=== PATIENT | female | born 1945 | race Caucasian/White ===

== ENCOUNTER → 2018-03-08 08:51 | Outpatient (CLI) | payer MEDICARE, BC, SELFPAY ==
[2018-03-08 10:51] LABS: Anion Gap 4 (5-15); BUN 23 mg/dL (7-18); BUN/Creat Ratio 16.2 RATIO (10-20); Calcium,Total 9.2 mg/dL (8.5-10.1); Chloride 104 mmol/L (98-107); Cholesterol 190 mg/dL (200); Creatinine, Serum 1.42 mg/dL (0.55-1.02); EST Glomerular Filtration Rate 39 mL/min (>60); Est Glom Filt Rate - Afr Amer 47 mL/min (>60); Glucose 108 mg/dL (74-106); High Density Lipoprotein 50 mg/dL; Potassium 4.2 mmol/L (3.5-5.1); Sodium Level 137 mmol/L (136-145); Triglycerides 151 mg/dL; Very Low Density Lipoprotein 30 mg/dL (5-40)
[2018-03-08 10:54] LABS: Vitamin D,25 Hydroxy 36.9 ng/mL (29.95-100.01)
[2018-03-08 11:04] LABS: Hemoglobin A1c 5.8 % (4.2-6.3)
== END ==
PROVIDERS: Family Provider Family Medicine; PCP Family Medicine; Referring Provider Family Medicine; Visit Provider Family Medicine
DX: I10 Essential (primary) hypertension (principal); E78.00 Pure hypercholesterolemia, unspecified; R73.09 Other abnormal glucose; E55.9 Vitamin D deficiency, unspecified
CPT/HCPCS: 36415; 80048; 80061; 82306; 83036

== ENCOUNTER → 2018-04-28 10:50 | Outpatient (CLI) | payer MEDICARE, BC, SELFPAY ==
--- NOTE | 2018-04-28 10:56 | BI_ITS ---
MAMMOGRAPHY - BILATERAL SCREENING REASON FOR EXAM: Female, 72 years old. Routine annual screening examination. PERTINENT HISTORY: Non-contributory. TECHNIQUE: Digital bilateral breast elver (3D mammographic acquisition) in the CC and MLO projections. 2-D mediolateral oblique (MLO) and craniocaudad (CC) views of both breasts were obtained. CAD: Full Field Digital Mammography with Computer Added Detection was performed. COMPARISON: Comparison is made with prior study dated April 25, 2017 and March 30, 2016. FINDINGS: Breast Composition: The breasts are heterogeneously dense, which may obscure small masses. There are no dominant masses or suspicious calcifications. Stable 8 mm x 8 mm well-defined nodule in the central medial retroareolar region of the left breast. Prior ultrasound of the left breast dated April 29, 2017 demonstrated this to be a small cyst. No other significant abnormalities are identified. There has been no significant change since the prior study. BI/SCREENING MAMM (CAD), BILAT IMPRESSION: Stable bilateral screening mammogram. Yearly follow-up mammogram recommended. (A) ASSESSMENT CATEGORY: BIRADS Category 2: Benign. A letter regarding these results will be sent to the patient by the facility within 30 days. Approximately 10% of breast cancers are not detected by mammography. A normal mammogram should not delay biopsy of a clinically suspicious abnormality. [id number] Electronically Signed: Angel James MD at 13:08 EST Tel [phone], Service support ,
== END ==
PROVIDERS: Family Provider Family Medicine; PCP Family Medicine; Referring Provider Nurse Practitioner Women's Health; Visit Provider Nurse Practitioner Women's Health
DX: Z12.31 Encounter for screening mammogram for malignant neoplasm of breast (principal)
CPT/HCPCS: 77063; 77067

== ENCOUNTER → 2018-10-10 13:40 | Outpatient (CLI) | payer MEDICARE, BC, SELFPAY ==
--- NOTE | 2018-10-10 14:16 | VDLE_ITS ---
Reason For Study: edema RIGHT LEFT CFV is compressible, spontaneous, phasic, GSV is normal. competent and demonstrates normal CFV is compressible, spontaneous, phasic, augmentation. competent, and demonstrates normal Procedure augmentation. Exam performed in department. FV is compressible, spontaneous, phasic, The exam was diagnostic. competent and demonstrates normal A preliminary report was called and/or faxed augmentation. to Dr. Sung Rodrigez's office. POP V is compressible, spontaneous, phasic, competent and demonstrates normal augmentation. T/P Trunk is compressible. PTV is compressible. LT PerV is compressible. Interpretation Summary Deep veins of the left lower extremity are patent and compressible segmentally. There is no evidence of left lower extremity deep vein thrombosis. Valvular competence appears intact within the proximal deep venous system on the left . The left greater saphenous vein appears patent and compressible segmentally. Ordering Physician: Sung Rodrigez Performed By: Matthew Calzada RVT
[2018-10-10 15:54] LABS: Absolute Neutrophil Count 6.2 X10^3/uL (2.0-7.7); Basophil# 0.02 X10^3/uL; Basophil% 0.2 % (0-1); Eosinophil# 0.42 X10^3/uL; Eosinophils% 4.9 % (0-5); Hemoglobin 11.6 g/dl (12.0-15.0); Lymphocyte % 15.1 % (19-41); Mean Corp Hgb Conc 33.1 g/gl (32-36); Mean Corpuscular Hgb 31.5 pg (27.0-32.0); Mean Corpuscular Volume 95.1 fL (81-99); Mean Platelet Vol. 10.8 fl (6.2-12.0); Monocyte# 0.66 X10^3/uL; Monocyte% 7.7 % (0-10); Neutrophil # 6.18 X10^3/uL (2.7-7.7); Neutrophil % 71.8 % (47-70); Platelet Count 263 K/mm3 (150-450); RBC Distribution Width CV 12.3 % (11.6-14.6); RBC Distribution Width SD 41.7 fl (35.1-43.9); Red Blood Count 3.68 M/mm3 (4.2-5.4); White Blood Count 8.6 K/mm3 (4.4-11.0)
[2018-10-10 15:59] LABS: POSITIVE COUNT NO; POSITIVE DIFFERENTIAL NO; POSITIVE MORPHOLOGY NO
[2018-10-10 16:22] LABS: Anion Gap 8 (5-15); BUN 27 mg/dL (7-18); BUN/Creat Ratio 20.3 RATIO (10-20); Calcium,Total 9.5 mg/dL (8.5-10.1); Chloride 99 mmol/L (98-107); Creatinine, Serum 1.33 mg/dL (0.55-1.02); EST Glomerular Filtration Rate 41 mL/min (>60); Est Glom Filt Rate - Afr Amer 50 mL/min (>60); Glucose 89 mg/dL (74-106); Potassium 3.7 mmol/L (3.5-5.1); Sodium Level 136 mmol/L (136-145)
[2018-10-10 16:37] LABS: BNP,B-Type NATRIURETIC PEPTIDE 23.5 pg/mL (0-100)
== END ==
PROVIDERS: Family Provider Family Medicine; PCP Family Medicine; Referring Provider Family Medicine; Visit Provider Family Medicine
DX: R60.0 Localized edema (principal)
CPT/HCPCS: 36415; 80048; 83880; 85025; 93971

== ENCOUNTER → 2018-10-17 11:55 | Outpatient (CLI) | payer MEDICARE, BC, SELFPAY ==
[2018-03-28 11:11] VITALS: BMI 36.1
--- NOTE | 2018-10-17 11:58 | RAD_ITS ---
STUDY: X-RAY CHEST REASON FOR EXAM: Female, 73 years old. Short of breath. TECHNIQUE: Frontal and lateral views of the chest. COMPARISON: 12/24/16 FINDINGS: The lungs are clear and expanded. There is no demonstrated pleural abnormality. Normal size heart. Normal mediastinum and dominga. Normal visualized pulmonary arteries. There is atherosclerotic tortuosity of the aortic arch and descending thoracic aorta. There are diffuse degenerative changes of the visualized thoracic spine. There is S-shaped scoliosis of the spine. Normal visualized ribs, clavicles, and shoulders. There is no demonstrated abnormality of the visualized soft tissue structures of the upper abdomen. RAD/Chest PA and Lateral IMPRESSION: No acute chest disease. Electronically Signed: Jasbir Castle MD at 12:13 EDT , Service support ,
== END ==
PROVIDERS: Family Provider Family Medicine; PCP Family Medicine; Referring Provider Family Medicine; Visit Provider Family Medicine
DX: R06.02 Shortness of breath (principal)
CPT/HCPCS: 71046

== ENCOUNTER → 2018-10-27 13:47 | Outpatient (CLI) | payer MEDICARE, BC, SELFPAY ==
--- NOTE | 2018-10-27 13:49 | ECHOD_ITS ---
Reason For Study: PEDAL EDEMA Procedure This was a 2D Doppler, Color Flow transthoracic echocardiogram. Exam performed in department. Left Ventricle Normal LV size. Left ventricular systolic function is normal. The estimated ejection fraction is 65 %. Stage 1 diastolic dysfunction. No regional wall motion abnormalities noted. Right Ventricle Normal RV size. ICD or pacer leads identified within the right ventricle. Normal systolic function. Atria Normal left atrium. Normal right atrium. Mitral Valve Normal mitral valve. Tricuspid Valve Normal tricuspid valve. Mild to moderate (1-2+) tricuspid valve insufficiency. Pulmonary artery systolic pressure is 40 mmHg. Aortic Valve Normal aortic valve. Pulmonic Valve Normal pulmonic valve. Great Vessels Normal aortic root. The pulmonary artery is normal size. Normal inferior vena cava. Pericardium/Pleural No pericardial effusion. MMode/2D Measurements & Calculations LVIDd: 3.7 cm IVSd: 1.0 cm Ao root diam: 3.2 cm LVIDs: 2.4 cm LVPWd: 0.99 cm RVDd: 3.2 cm FS: 35.3 % LAV(MOD-bp): 53.9 ml LVAd ap4: 30.7 cm2 SV(MOD-sp4): 63.2 ml LAV(MOD-bp) Indexed: 24.5 ml/m2 EDV(MOD-sp4): 93.4 ml LAV(MOD-sp2): 67.7 ml EDV(sp4-el): 99.8 ml LAV(MOD-sp4): 39.2 ml LVAs ap4: 15.0 cm2 ESV(MOD-sp4): 30.2 ml ESV(sp4-el): 33.4 ml EF(MOD-sp4): 67.6 % EF(sp4-el): 66.5 % SV(sp4-el): 66.3 ml LA A4 area: 16.3 cm2 LA dimension(2D): 4.0 cm RA A4 area: 14.5 cm2 Time Measurements MV dec time: 0.42 sec Doppler Measurements & Calculations MV E max jacob: 74.5 cm/sec Lat Peak E' Jacob: 12.9 cm/sec Med Peak E' Jacob: 5.2 cm/sec MV A max jacob: 118.2 cm/sec E/E' lat: 5.8 E/E' med: 14.4 MV E/A: 0.63 Ao V2 max: 138.4 cm/sec LV V1 max: 130.7 cm/sec PA V2 max: 110.2 cm/sec Ao max P.7 mmHg LV V1 max P.8 mmHg TR max jacob: 300.3 cm/sec TR max P.2 mmHg Interpretation Summary Normal LV size. Left ventricular systolic function is normal. The estimated ejection fraction is 65 %. Stage 1 diastolic dysfunction. Pulmonary artery systolic pressure is 40 mmHg. Ordering Physician: Sung Rodrigez Referring Physician: Sung Rodrigez Performed By: Maria R Kulkarni RDCS
== END ==
PROVIDERS: Family Provider Family Medicine; PCP Family Medicine; Referring Provider Family Medicine; Visit Provider Family Medicine
DX: R60.0 Localized edema (principal)
CPT/HCPCS: 93306

== ENCOUNTER → 2018-10-31 14:01 | Outpatient (CLI) | payer MEDICARE, BC, SELFPAY ==
--- NOTE | 2018-10-31 14:31 | US_ITS ---
STUDY: ULTRASOUND OF THE FEMALE PELVIS - COMPLETE REASON FOR EXAM: Female, 73 years old. Pedal edema LMP: TECHNIQUE: Transabdominal TECHNICAL QUALITY: Adequate. COMPARISON: None. FINDINGS: The uterus is nonvisualized. The right ovary is visualized. The right ovary nonvisualized. The left ovary is nonvisualized.. There is no fluid in the cul-de-sac. The pre void volume of the bladder was 226.7 ml. There is no visualized free fluid. US/Pelvic (Non ) IMPRESSION: Nonvisualization of the reproductive organs. This may be due to body habitus atrophy or potentially prior history of surgery. Electronically Signed: Toya Mayo MD at 17:56 EDT Tel , Service support ,
== END ==
PROVIDERS: Family Provider Family Medicine; PCP Family Medicine; Referring Provider Family Medicine; Visit Provider Family Medicine
DX: R10.2 Pelvic and perineal pain (principal); R60.0 Localized edema
CPT/HCPCS: 76856

== ENCOUNTER → 2018-11-03 13:30 | Outpatient (CLI) | payer MEDICARE, BC, SELFPAY ==
--- NOTE | 2018-11-03 13:48 | US_ITS ---
STUDY: RENAL ULTRASOUND - COMPLETE REASON FOR EXAM: Female, 73 years old. Edema TECHNIQUE: Ultrasound evaluation of the kidneys was performed with real-time and static thompson-scale imaging. COMPARISON: None available. FINDINGS: RIGHT KIDNEY: Normal location of the right kidney, which is normal in size. The right kidney measures 11.3 cm. There is a normal cortex of the right kidney. There is no right renal mass or cyst. There are no right renal calculi. There is an extra-renal pelvis of the right kidney. There is no distention of the renal calyces. DISTAL RIGHT URETER: There is non-visualization of the distal right ureter. There is no demonstrated right ureterovesical junction calculus. There is a visualized right ureteral jet. LEFT KIDNEY: Normal location of the left kidney, which is normal in size. The left kidney measures 10.3 cm. There is a normal cortex of the left kidney. There is no left renal mass or cyst. There are no left renal calculi. There is no left hydronephrosis. DISTAL LEFT URETER: There is non-visualization of the distal left ureter. There is no demonstrated left ureterovesical junction calculus. There is a visualized left ureteral jet. BLADDER: The urinary bladder is partially distended and appears unremarkable. There is a postvoid residual of 25 cc. US/Kidney and Bladder IMPRESSION: Normal kidneys. No hydronephrosis. Postvoid residual of 25 cc in the urinary bladder.. Electronically Signed: Deuce Maravilla, at 22:40 EDT Tel , Service support ,
[2018-11-03 13:54] LABS: Anion Gap 5 (5-15); BUN 27 mg/dL (7-18); BUN/Creat Ratio 21.1 RATIO (10-20); Calcium,Total 9.9 mg/dL (8.5-10.1); Chloride 95 mmol/L (98-107); Creatinine, Serum 1.28 mg/dL (0.55-1.02); EST Glomerular Filtration Rate 43 mL/min (>60); Est Glom Filt Rate - Afr Amer 52 mL/min (>60); Glucose 121 mg/dL (74-106); Potassium 3.9 mmol/L (3.5-5.1); Sodium Level 129 mmol/L (136-145)
== END ==
PROVIDERS: Family Provider Family Medicine; PCP Family Medicine; Referring Provider Family Medicine; Visit Provider Family Medicine
DX: R60.0 Localized edema (principal)
CPT/HCPCS: 36415; 76770; 80048

== ENCOUNTER → 2018-12-14 10:54 | Outpatient (CLI) | payer MEDICARE, BC, SELFPAY ==
[2018-03-28 11:11] VITALS: BMI 36.1
--- NOTE | 2018-12-14 10:55 | VDLE_ITS ---
Reason For Study: pain ans swelling, May Thurner syndrome RIGHT LEFT CFV is compressible, spontaneous, phasic, CFV is compressible, spontaneous, phasic, competent and demonstrates normal competent, and demonstrates normal augmentation. augmentation. Procedure FV is compressible, spontaneous, phasic, Exam performed in department. competent and demonstrates normal The exam was diagnostic. augmentation. POP V is compressible, spontaneous, phasic, competent and demonstrates normal augmentation. T/P Trunk is compressible. PTV is compressible. LT PerV is compressible. S-F Junction is competent. S-F Junction measures .69 x .86 cm. GSV is incompetent throughout for greater than .5 seconds. GSV measures .26 x .27 cm. SSV is competent. Fur Weigher V 8 cm proximal to the medial malleolus is incompetent for greater than .5 seconds. Interpretation Summary 1. Left no DVT or SVT. 2. Reflux in small left GSV at 2.7mm. Ordering Physician: Luis M Gagnon Performed By: Matthew Calzada RVT
--- NOTE | 2018-12-14 11:35 | CT_ITS ---
STUDY: CT ABDOMEN AND PELVIS WITH CONTRAST REASON FOR EXAM: Female, 73 years old. Nausea and vomiting RADIATION DOSAGE (If Supplied By Facility): CTDIvol = ( 17.40 ) mGy, DLP = ( 1091.98 ) mGycm TECHNIQUE: Transaxial images were obtained from the dome of the diaphragm to the symphysis pubis without oral contrast. 100 IV Isovue 300 was administered. Sagittal and coronal images were reconstructed. Individualized dose optimization techniques were used for this CT. COMPARISON: None. FINDINGS: The visualized lung bases are unremarkable. The visualized portions of the heart are within normal limits. Normal liver. Normal gallbladder and extrahepatic biliary system. Normal spleen. Normal pancreas. Normal bilateral adrenal glands. Normal right kidney. Normal left kidney. There is a small hiatal hernia. Normal small intestine. Retained stool noted in the colon. Scattered diverticula noted throughout the descending and sigmoid colon. No CT evidence of acute diverticulitis. There is non-visualization of the appendix. There is diffuse atherosclerotic calcification of the abdominal aorta, without a demonstrated aneurysm. Normal inferior vena cava. Normal retroperitoneum. Normal urinary bladder. Normal abdominal wall. There are diffuse degenerative changes of the visualized lumbar spine, and pelvis. CT/Abdomen/Pelvis WITH Contrast IMPRESSION: Colonic diverticulosis Retained stool Hiatal hernia No suspicious solid organ abnormality No CT evidence of an acute inflammatory process Electronically Signed: Andrae Gamboa MD at 13:21 EDT , Service support ,
== END ==
PROVIDERS: Family Provider Family Medicine; PCP Family Medicine; Referring Provider Surgery Vascular Surgery; Visit Provider Surgery Vascular Surgery
DX: I87.1 Compression of vein (principal); M79.605 Pain in left leg; M79.89 Other specified soft tissue disorders
CPT/HCPCS: 74177; 93971; Q9967

== ENCOUNTER → 2019-03-19 10:08 | Outpatient (CLI) | payer MEDICARE, BC, SELFPAY ==
[2018-03-28 11:11] VITALS: BMI 36.1
[2019-03-19 12:42] LABS: Anion Gap 5 (5-15); BUN 26 mg/dL (7-18); BUN/Creat Ratio 20.2 RATIO (10-20); Calcium,Total 9.6 mg/dL (8.5-10.1); Chloride 106 mmol/L (98-107); Cholesterol 190 mg/dL (200); Creatinine, Serum 1.29 mg/dL (0.55-1.02); EST Glomerular Filtration Rate 43 mL/min (>60); Est Glom Filt Rate - Afr Amer 52 mL/min (>60); Glucose 98 mg/dL (74-106); High Density Lipoprotein 51 mg/dL; Potassium 4.2 mmol/L (3.5-5.1); Sodium Level 140 mmol/L (136-145); Triglycerides 140 mg/dL; Very Low Density Lipoprotein 28 mg/dL (5-40)
[2019-03-19 12:45] LABS: Hemoglobin A1c 5.5 % (4.2-6.3)
== END ==
PROVIDERS: Family Provider Family Medicine; PCP Family Medicine; Referring Provider Family Medicine; Visit Provider Family Medicine
DX: I10 Essential (primary) hypertension (principal); R73.09 Other abnormal glucose
CPT/HCPCS: 36415; 80048; 80061; 83036

== ENCOUNTER → 2019-06-05 14:34 | Outpatient (CLI) | payer MEDICARE, BC, SELFPAY ==
[2019-06-05 14:10] VITALS: BMI 36.1
--- NOTE | 2019-06-05 14:34 | BI_ITS ---
MAMMOGRAPHY - BILATERAL SCREENING REASON FOR EXAM: Female, 73 years old. Routine annual screening examination. PERTINENT HISTORY: Non-contributory. TECHNIQUE: Digital bilateral breast nava (3D mammographic acquisition) in the CC and MLO projections. 2-D mediolateral oblique (MLO) and craniocaudad (CC) views of both breasts were obtained. CAD: Full Field Digital Mammography with Computer Added Detection was performed. COMPARISON: Comparison is made with prior study dated April 28, 2018 and April 25, 2017. FINDINGS: Breast Composition: The breasts are heterogeneously dense, which may obscure small masses. There are no dominant masses or suspicious calcifications. No other significant abnormalities are identified. There has been no significant change since the prior study. BI/SCREEN MAMM (CAD) W/NAVA BILAT IMPRESSION: Stable bilateral screening mammogram. Yearly follow-up mammogram recommended. (A) ASSESSMENT CATEGORY: BIRADS Category 1: Negative. A letter regarding these results will be sent to the patient by the facility within 30 days. Approximately 10% of breast cancers are not detected by mammography. A normal mammogram should not delay biopsy of a clinically suspicious abnormality. [id number] Electronically Signed: Angel James, at 8:36 EST , Service support ,
== END ==
PROVIDERS: Family Provider Family Medicine; PCP Family Medicine; Referring Provider Nurse Practitioner Women's Health; Visit Provider Nurse Practitioner Women's Health
DX: Z12.31 Encounter for screening mammogram for malignant neoplasm of breast (principal)
CPT/HCPCS: 77063; 77067

== ENCOUNTER → 2020-03-11 08:53 | Outpatient (CLI) | payer MEDICARE, BC, SELFPAY ==
[2020-02-21 11:09] VITALS: BMI 32.7
[2020-02-27 13:10] VITALS: BMI 36.1
[2020-03-11 10:57] LABS: ALB/GLOB Ratio 1.1 RATIO (0.9-2.4); AST(SGOT) 15 U/L (15-37); Alanine Aminotransfer ALT/SGPT 20 U/L (13-56); Albumin, Serum 3.8 g/dL (3.2-5.0); Alkaline Phosphatase 69 U/L (45-117); Anion Gap 5 (5-15); BUN 22 mg/dL (7-18); BUN/Creat Ratio 16.2 RATIO (10-20); Calcium,Total 9.2 mg/dL (8.5-10.1); Chloride 101 mmol/L (98-107); Cholesterol 190 mg/dL (200); Creatinine, Serum 1.36 mg/dL (0.55-1.02); EST Glomerular Filtration Rate 40 mL/min (>60); Est Glom Filt Rate - Afr Amer 49 mL/min (>60); Globulin 3.5 g/dL (2.2-4.2); Glucose 104 mg/dL (74-106); High Density Lipoprotein 55 mg/dL; Potassium 4.1 mmol/L (3.5-5.1); Protein, Total 7.3 g/dL (6.4-8.2); Sodium Level 136 mmol/L (136-145); Triglycerides 140 mg/dL; Very Low Density Lipoprotein 28 mg/dL (5-40)
== END ==
PROVIDERS: PCP Family Medicine; Referring Provider Family Medicine; Visit Provider Family Medicine
DX: I10 Essential (primary) hypertension (principal)
CPT/HCPCS: 36415; 80053; 80061

== ENCOUNTER → 2020-03-20 09:41 | Outpatient (CLI) | payer MEDICARE, BC, SELFPAY ==
[2020-02-21 11:09] VITALS: BMI 32.7
[2020-02-27 13:10] VITALS: BMI 36.1
[2020-03-20 12:48] LABS: Anion Gap 5 (5-15); BUN 20 mg/dL (7-18); BUN/Creat Ratio 15.5 RATIO (10-20); Calcium,Total 8.8 mg/dL (8.5-10.1); Chloride 97 mmol/L (98-107); Creatinine, Serum 1.29 mg/dL (0.55-1.02); EST Glomerular Filtration Rate 43 mL/min (>60); Est Glom Filt Rate - Afr Amer 52 mL/min (>60); Glucose 93 mg/dL (74-106); Phosphorus 3.2 mg/dL (2.5-4.9); Sodium Level 132 mmol/L (136-145)
[2020-03-20 12:53] LABS: PTHIN 110.1 pg/mL (18.4-80.1)
[2020-03-20 13:00] LABS: Protein, Urine (Random) < 6.0 mg/dL (<11.9)
== END ==
PROVIDERS: PCP Family Medicine; Referring Provider Family Medicine; Visit Provider Family Medicine
DX: N18.30 Chronic kidney disease, stage 3 unspecified (principal)
CPT/HCPCS: 36415; 80048; 82570; 83970; 84100; 84156

== ENCOUNTER → 2020-03-26 09:17 | Outpatient (CLI) | payer MEDICARE, BC, SELFPAY ==
[2020-02-21 11:09] VITALS: BMI 32.7
[2020-02-27 13:10] VITALS: BMI 36.1
--- NOTE | 2020-03-26 09:22 | US_ITS ---
STUDY: RENAL ULTRASOUND - COMPLETE REASON FOR EXAM: Female, 74 years old. ckd 3 TECHNIQUE: Ultrasound evaluation of the kidneys was performed with real-time and static thompson-scale imaging. COMPARISON: Comparison is made with prior study dated 11/03/2018. FINDINGS: RIGHT KIDNEY: Normal location of the right kidney, which is normal in size. The right kidney measures 10.5 cm x 4.2 cm x 6.2 cm. There is a normal cortex of the right kidney. The renal cortex measures 2.0 cm. There is no right renal mass or cyst. There are no right renal calculi. There is an extra-renal pelvis of the right kidney. There is no distention of the renal calyces. DISTAL RIGHT URETER: There is non-visualization of the distal right ureter. There is no demonstrated right ureterovesical junction calculus. There is a visualized right ureteral jet. LEFT KIDNEY: Normal location of the left kidney, which is normal in size. The left kidney measures 10.2 cm x 4.4 cm x 4.9 cm. There is a normal cortex of the left kidney. The renal cortex measures 1.4 cm. There is no left renal mass or cyst. There are no left renal calculi. There is no left hydronephrosis. DISTAL LEFT URETER: There is non-visualization of the distal left ureter. There is no demonstrated left ureterovesical junction calculus. There is a visualized left ureteral jet. BLADDER: The distended urinary bladder has a volume of 101 ml. US/Kidney and Bladder IMPRESSION: Normal ultrasound of the kidneys and urinary bladder. Electronically Signed: Angel James, at 15:24 EST , Service support ,
== END ==
PROVIDERS: PCP Family Medicine; Referring Provider Family Medicine; Visit Provider Family Medicine
DX: N18.30 Chronic kidney disease, stage 3 unspecified (principal); I65.29 Occlusion and stenosis of unspecified carotid artery; R01.1 Cardiac murmur, unspecified
CPT/HCPCS: 76770

== ENCOUNTER → 2020-03-28 08:49 | Outpatient (CLI) | payer MEDICARE, BC, SELFPAY ==
[2020-02-21 11:09] VITALS: BMI 32.7
[2020-02-27 13:10] VITALS: BMI 36.1
--- NOTE | 2020-03-28 08:52 | CDU_ITS ---
Reason For Study: Carotid stenosis Rt. Velocities/BP Lt. Velocities/BP Prox CCA 95.1/ 20.7 cm/sec. Prox CCA 74.8/ 22.0 cm/sec. Mid CCA 85.9/ 22.0 cm/sec. Mid CCA 89.5/ 19.5 cm/sec. Dist CCA 84.6/ 23.3 cm/sec. Dist CCA 83.4/ 26.9 cm/sec. Prox ICA 80.7/ 20.7 cm/sec. Prox ICA 79.9/ 22.0 cm/sec. Mid ICA 89.9/ 26.0 cm/sec. Mid ICA 73.6/ 24.5 cm/sec. Dist ICA 72.4/ 19.7 cm/sec. Dist ICA 87.0/ 36.8 cm/sec. Rt. ICA/CCA = 1.0. Lt. ICA/CCA = 1.0. Prox ECA 93.8/ 9.0 cm/sec. Prox ECA 82.2/ 13.4 cm/sec. Rt. Vert. 45.3/ 15.0 cm/sec. Lt. Vert. 56.4/ 15.8 cm/sec. Right Extracranial There is intimal thickening but no significant atherosclerotic plaque noted in the right common carotid artery. There is heterogeneous, irregular atherosclerotic plaque noted in the right internal carotid artery. There is intimal thickening but no significant atherosclerotic plaque noted in the right external carotid artery. Antegrade flow is noted in the right vertebral artery. Left Extracranial There is homogeneous, smooth atherosclerotic plaque noted in the left common carotid artery. There is heterogeneous, irregular atherosclerotic plaque noted in the left internal carotid artery. There is intimal thickening but no significant atherosclerotic plaque noted in the left external carotid artery. The left external carotid artery is not well visualized. Antegrade flow is noted in the left vertebral artery. Procedure Carotid Duplex 54512. This is a Carotid Duplex examination using B-mode, color flow and specral Doppler. Exam performed in department. Interpretation Summary Mild (<50%) stenosis right extracranial internal carotid. Mild (<50%) stenosis left extracranial internal carotid. Flow within the vertebral arteries is antegrade bilaterally. Ordering Physician: Sung Hicks Referring Physician: Sung Finch Performed By: Ambreen Dailey RVT and Student
--- NOTE | 2020-03-28 08:53 | ECHOD_ITS ---
Reason For Study: Murmur Procedure This was a 2D Doppler, Color Flow transthoracic echocardiogram. Exam performed in department. Left Ventricle Normal LV size. Sigmoid septum. Left ventricular systolic function is normal. The estimated ejection fraction is 65 %. Diastolic function is indeterminate. No regional wall motion abnormalities noted. Right Ventricle Normal RV size. Normal systolic function. Atria The left atrium is mildly enlarged. Normal right atrium. No doppler evidence for ASD. Mitral Valve There is no mitral annular calcification. Normal mitral valve. Trivial mitral valve insufficiency. Tricuspid Valve Normal tricuspid valve. Mild tricuspid valve insufficiency. Right ventricular systolic pressure estimated to be 32 mmHg. Aortic Valve Trisinus/trileaflet aortic valve. Normal aortic valve. Pulmonic Valve The pulmonic valve is not well visualized. Trivial pulmonic valve insufficiency. Great Vessels Normal sized aortic root. Pericardium/Pleural No pericardial effusion. MMode/2D Measurements & Calculations LVIDd: 3.8 cm IVSd: 1.5 cm Ao root diam: 3.5 cm LVIDs: 2.3 cm LVPWd: 1.2 cm LA dimension: 4.0 cm FS: 38.7 % LAV(MOD-bp): 55.0 ml LA A4 area: 18.4 cm2 RA A4 area: 14.3 cm2 LAV(MOD-bp) Indexed: 27.4 ml/m2 LAV(MOD-sp2): 52.2 ml LAV(MOD-sp4): 49.4 ml Time Measurements MV dec time: 0.34 sec Doppler Measurements & Calculations MV E max jacob: 79.3 cm/sec Lat Peak E' Jacob: 9.7 cm/sec Med Peak E' Jacob: 3.9 cm/sec MV A max jacob: 113.2 cm/sec E/E' lat: 8.1 E/E' med: 20.5 MV E/A: 0.70 MV V2 max: 112.5 cm/sec MV P1/2t max jacob: 80.8 cm/sec Ao V2 max: 118.4 cm/sec MV max P.1 mmHg MV P1/2t: 123.3 msec Ao max P.6 mmHg MV V2 mean: 56.8 cm/sec MV dec slope: 191.8 cm/sec2 MV mean P.5 mmHg MVA(P1/2t): 1.8 cm2 MV V2 VTI: 29.2 cm LV V1 max: 101.5 cm/sec PA V2 max: 115.6 cm/sec TR max jacob: 267.9 cm/sec LV V1 max P.1 mmHg TR max P.7 mmHg Interpretation Summary Left ventricular systolic function is normal. The estimated ejection fraction is 65 %. Sigmoid septum. The left atrium is mildly enlarged. Trivial mitral valve insufficiency. Mild tricuspid valve insufficiency. Trivial pulmonic valve insufficiency. Right ventricular systolic pressure estimated to be 32 mmHg. Diastolic function is indeterminate. Ordering Physician: Sung Hicks Referring Physician: Sung Hicks Performed By: Rj Villarreal RCS
--- NOTE | 2020-03-28 08:53 | RDU_ITS ---
Reason For Study: CKD3 Right Renal Artery Left Renal Artery Right renal artery ostium 90.3/16.3 Left renal artery ostium 65.7/16 RSV/EDV. PSV/EDV. Right renal artery proximal 93.3/25 Left renal artery proximal PSV/EDV PSV/EDV. 57.8/13.8 . Right renal artery mid 100.5/25 Left renal artery mid 68/21.7 PSV/EDV. PSV/EDV . Right renal artery distal Left renal artery distal 69.1/16 121.1/31.1 PSV/EDV. PSV/EDV. Right RAR 1.44. Left RAR 0.82. Right Renal Parenchyma Left Renal Parenchyma Upper Pole Medula 41.9/10.1 Left upper pole medulla 29.4/10.2 PSV/EDV. PSV/EDV . Right upper pole medulla EDR 0.24 . Left upper pole medulla EDR 0.35 . Right upper pole medulla R.I. Left upper pole medulla R.I. 0.65 . 0.76 . UP Cortex 20.3/7.5 PSV/EDV. Upper Terry Cortx 28.7/7.9 PSV/EDV. Left upper pole cortex EDR 0.37 . Right upper pole cortex EDR 0.27 . Left upper pole cortex R.I. 0.63 . Right upper pole cortex R.I. 0.73 . Left lower Pole medulla 31.2/9.3 Right lower Pole medulla 37.5/10.1 PSV/EDV . PSV/EDV . Left lower pole medulla EDR 0.30 . Right lower pole medulla EDR 0.27 . Left lower pole medulla R.I. 0.70 . Right lower pole medulla R.I. Lower Pole Cortx 22.1/7.5 PSV/EDV. 0.73 . Left lower pole cortex EDR 0.34 . Lower Pole Cortex 21.1/6.8 PSV/EDV. Left lower pole cortex R.I. 0.66 . Right lower pole cortex EDR 0.32 . Left Renal Hilar Right lower pole cortex R.I. 0.68 . LT Hilar avg 44.9/13.9 PSV/EDV . Right Renal Hilar Left hilar acceleration time 50 Right Hilar avg 49.6/15.6 PSV/EDV. m/sec. Right hilar acceleration time 30 Left Renal Dimensions m/sec. Left kidney size 10.10 cm . Right Renal Dimensions Left cortical dimension 1.67 cm . Right kidney size 10.28 cm . Right cortical dimension 1.76 cm . Aorta Proximal abdominal aorta 1.80 x 2.08 cm . Proximal abdominal aorta peak systolic velocity is 83.9 cm/sec . Distal abdominal aorta 1.71 x 1.73 cm . Distal abdominal aorta peak systolic velocity is 94.8 cm/sec . Interpretation Summary Dimensions of the intra-abdominal aorta appear normal, without evidence of aneurysmal dilatation. Renal artery velocities are bilaterally normal. Acceleration times are normal bilaterally. Renal- aortic ratios are also bilaterally normal. There is no evidence of hemodynamically significant renal artery stenosis on either side. The right cortical dimension is increased. The left cortical dimension is increased. Kidneys appear normal in size bilaterally. Ordering Physician: Sung Hicks Referring Physician: Sung Finch Performed By: Ambreen Dailey RVT and Student
== END ==
PROVIDERS: PCP Family Medicine; Referring Provider Family Medicine; Visit Provider Family Medicine
DX: Z01.818 Encounter for other preprocedural examination (principal); N18.30 Chronic kidney disease, stage 3 unspecified; I65.23 Occlusion and stenosis of bilateral carotid arteries; R01.1 Cardiac murmur, unspecified
CPT/HCPCS: 93306; 93880; 93975

== ENCOUNTER 2020-04-08 06:28 | Day surgery (SDC) | payer MEDICARE, BC, SELFPAY ==
[2020-02-21 11:09] VITALS: BMI 32.7
[2020-02-27 13:10] VITALS: BMI 36.1
--- NOTE | 2020-04-08 06:50 | HP.PCM_ITS ---
Problem List (1) Change in bowel habit Status: Acute (2) Epigastric pain Status: Acute History and Physical Date of Admission: 04/08/20 Intake Visit Reasons: C-Scope & EGD Chief Complaint: abdominal pain Shell [employer] Bonder Required: No Is patient in pain?: No Allergies Sulfa (Sulfonamide Antibiotics) Adverse Reaction (Intermediate, Verified 02/27/20 13:08) rash,hives Medications aspirin 81 mg tablet,delayed release 81 mg PO DAILY 06/05/19 [History Confirmed 02/27/20] lactobacillus combination no.8 3 billion cell capsule 3,000 mmu cells PO DAILY 06/05/19 [History Confirmed 02/27/20] lisinopril 20 mg-hydrochlorothiazide 12.5 mg tablet 1 tab PO DAILY 06/05/19 [History Confirmed 02/27/20] multivitamin 1 tab PO DAILY 06/05/19 [History Confirmed 02/27/20] naproxen 250 mg tablet 250 mg PO BID PRN 06/05/19 [History Confirmed 02/27/20] psyllium husk 0.4 gram capsule 0.4 g PO DAILY 06/05/19 [History Confirmed 02/27/20] estradiol 0.5 mg tablet 0.5 mg PO .COMPLEX #30 tab 09/17/19 [Rx Confirmed 02/27/20] Esomeprazole Mag Trihydrate [Nexium] 20 mg PO DAILY 02/21/20 [History Confirmed 02/27/20] Triamcinolone 0.1% Cream [Kenalog] 1 applic TOPICAL BID 02/21/20 [History Con firmed 02/27/20] famotidine 10 mg tablet 10 mg PO DAILY PRN 02/27/20 [History Confirmed 02/27/20] fluticasone propionate 50 mcg/actuation nasal spray,suspension 1 spray INTRANASAL DAILY ml 02/27/20 [History Confirmed 02/27/20] [facility] Medical History (Updated 02/27/20 @ 13:[address] Jake Mo MD) Change in bowel habit (Acute) Epigastric pain (Acute) Abdominal pain (Acute) Arthritis (Acute) BCC (basal cell carcinoma of skin) (Acute) DENTAL IMPLANT WITH NASAL SINUS BONE IMP (Acute) Diverticulitis (Acute) SCC (squamous cell carcinoma) (Acute) Hypertension (Chronic) Surgical History (Updated 02/27/20 @ 13:00 by Lynne Dawson) History of dilation and curettage (Acute) Cataract (Acute) FH: total knee replacement (Acute) H/O cardiac catheterization (Acute) H/O section (Acute) H/O hemicolectomy (Acute ~11/20/97) History of appendectomy (Acute) History of dental surgery (Acute) History of tonsillectomy and adenoidectomy (Acute) Status post ANNEL-BSO (Acute) Family History Father CAD (coronary artery disease) Alzheimer's dementia with behavioral disturbance Sister Endometrial cancer Alzheimer's dementia with behavioral disturbance Mother Arthritis Social History (Updated 02/27/20 @ 13:[address] Jake oM MD) number of children: 3 Smoking Status: Never smoker alcohol intake: never substance use type: does not use caffeine: Yes what type of physical activity do you participate in: none seatbelt use: always do you feel safe at home: Yes additional social history: -Gato HPI HPI HPI: JENNIFER WELLS, is a 74 F who presents to the office today for surgical consultation regarding epigastric pain and separate change of bowel habits. She is referred by Dr. Sung Finch and written copy my surgical consult recommendations were returned to him. The patient's had epigastric burning discomfort. She does have arthritis and she has to take routine Aleve therapy. For the longest time she was taking famotidine therapy as well as the Aleve and that would remedy her problem but then the burning epigastric discomfort intensified. She changed over to Nexium which did improve her care. But she was interested in diminishing that drug. She tried to go to every other day with lack of success because of recurrent epigastric discomfort. To complicate features she has combined almost dumping type diarrhea with and multiple days of not moving her stools. She has not noticed any bright red b lood. In 1997 I performed a colectomy for her for diverticular disease. She has not noticed any fever or chills sweats. She is not aware that she has been exposed anyone with Covid-19. Family history is negative for colon cancer. She does take a low-dose aspirin. There is been no personal or family history of colon polyps. Her previous colonoscopy was almost 10 years ago. HPI HPI HPI: JENNIFER WELLS, is a 74 F who presents to the office today for ROS General General: Yes weight change and fatigue; no appetite, colon cancer, breast cancer or weakness HEENT HEENT: No difficulty swallowing, eye injury, eye surgery, swollen glands or hoarseness Endo Endocrine: No thyroid disease, diabetes mellitus, thyroid cancer, Hair loss, heat intolerance or cold intolerance Skin Skin: No rash or changing moles Additional Details: History of various skin cancers Breast Breast: No left breast lump, right breast lump, nipple discharge, breast pain, abnormal mammogram, abnormal US or breast enlargement Musc Musculoskeletal: Yes arthritis; no back problems, rheumatoid arthritis, gout or joint pain Cardio Cardiovascular: Yes high blood pressure; no murmur, pacemaker, heart disease, atrial fibrillation, heart attack, heart stent, palpitations, shortness of breat with exertion or chest pain Psych Psychiatric: No depression, anxiety or hearing voices Resp Respiratory: No shortness of breath, No sleep apnea, No cough, No COPD, No asthma, No emphysema, No wheezing Gastro Gastrointestinal: Yes abdominal pain, Yes nausea or vomiting, Yes diarrhea, Yes constipation, No blood in stool, Yes acid reflux, Yes hemorrhoids, No ulcers, No gallbladder problem, No black,tarry stools Jhon Hematologic: No blood thinners, No blood disorders, No bleeding, No anemia, No blood clots Neuro Neurologic: No system reviewed and no additional complaints, except as docu, No as per HPI, No abnormal walking, No abnormal hearing, No abnormal movements, No abnormal speech, No behavioral changes, No burning sensations, No confusion, No seizure-like activity, No unsteadiness, No dizziness, No localized weakness, No frequent falls, No headache(s), No lack of coordination, No loss of vision, No memory loss, No numbness, No other visual disturbances, No radiating pain, No restless legs, No sensory deficit, No fainting, No tingling, No tremor(s), No weakness, No other Exam Const General: cooperative, healthy appearing, comfortable Nutritional Appearance: obese Orientation: alert, awake HENMT Other: Nasal tip 1.2 cm diameter superficial skin cancer Chest Breast Palpation: No nipple discharge Resp Effort & Inspection: normal respiratory effort Auscultation: clear to auscultation bilaterally Cardio Rate: regular rate Rhythm: regular rhythm Heart Sounds: no murmurs GI Palpation: soft, no hepatosplenomegaly Neuro General: alert, awake Extrem General: no calf tenderness Psych Affect: normal affect Assessment & Plan Problems 1. Epigastric pain R10.13 2. Change in bowel habit R19.4 Plan Epigastric pain. Findings suggest probable gastritis cannot exclude actual ulcerative disease. I recommend a esophagogastroduodenoscopy with possible bio psy or polypectomy as indicated. Change of bowel habit certainly of note. She has had a previous sigmoid colectomy for diverticular disease. That was remote 1997. Her abdominal exam currently is negative for acute discomfort. Believe that is pertinent proceed with a colonoscopy with anticipated at least random colonic biopsies looking for possible microcytic colitis in addition to looking for recurrent diverticular problems. She has had an opportunity to ask and have questions answered. She will schedule procedure at her discretion. We will use monitored anesthesia care. She has consideration for upcoming [facility] surgery I appreciate the opportunity of assisting with her surgical care Copy Dr. Sung Mo M.D., F.A.C.S. Orders Orders: Colonoscopy Today EGD Today Coding Level of Care Code 50372 Diagnoses Epigastric pain R10.13 Change in bowel habit R19.4 He has had carotid duplex imaging and renal duplex imaging none of which was eventful. She has been placed on her blood pressure medicine twice a day. Blood pressure is better controlled. Her history and physical is otherwise unchanged and we will proceed as noted. Jake Mo M.D., F.A.C.S. Procedure Criteria Procedure Type: Elective COVID Risk Discussion: The surgeon/proceduralist and patient have discussed in detail the risk of exposure to and/or potential harm posed by the COVID-19 virus with having a surgery/procedure at this time versus the risk of delaying the surgery/procedure. It is not possible to know either the risk of delaying the surgery or procedure or chance of getting an infection with perfect accuracy, but a joint decision was made between the patient and the surgeon/proceduralist to proceed at this time with the scheduled surgery/procedure as indicated on the consent form.
[2020-04-08 07:07] VITALS: BP 189/97; PULSE 73; RESP 16; TEMP 37.1; O2SAT 96; BMI 32.3
[2020-04-08] MEDS: Lactated Ringers 1,000 ML 100 ML IV (07:25)
--- NOTE | 2020-04-08 07:30 | COLBX_PTH ---
PATIENT: JENNIFER WELLS LOC: EN U#:[id number] AGE/SX: 74/F ROOM: RE04/08/[address]: Dr. Jake Mo MD : 1945 BED: DIS: 04/08/2020 SPEC #: [id number] RECD: 04/08/20 10:18 STATUS: CEDRIC RODRIGUES #: [id number] DREA: 04/08/20 07:[address]: Jake Mo DEPT: SURGICAL PATHOLOGY RECD BY: Nimco Han ENTERED: 04/08/20 11:09 SP TYPE: COLON BX OTHR DR: Dr. Sung Finch MD Tissues: A - Duodenum, NOS B - Gastric mucous membrane C - Esophagus, NOS D - Esophagus, NOS E - COLON BIOPSY Procedures: Surgery Specimen Level IV HEADER OPERATION: Colonoscopy, EGD ([facility]) PRE-OP DIAGNOSIS: Change in bowel habit; epigastric pain TISSUE SUBMITTED: A - Duodenum biopsy, B - Antrum biopsy for histo and H. pylori, C - Distal esophagus biopsy, D - Mid esophagus biopsy, E - Random colonic biopsy MICROSCOPIC DIAGNOSIS A. Duodenum, biopsy: No pathologic change. B. Gastric antrum, biopsy: Chronic gastritis. See comment. C. Distal esophagus, biopsy: Fragments of benign squamous mucosa. Focal acute inflammation. Focal changes of reflux. Negative for fungal organisms. See comment. D. Mid esophagus, biopsy: Fragments of benign squamous mucosa. No evidence of inflammation. E. Colon, random biopsy: No pathologic change. AM:jahaira 04/09/20 COMMENT B. The results of immunohistochemistry for Helicobacter pylori will be reported separately ([id number]). C. GMS stain with matched control was used in the evaluation of this case. MICROSCOPIC DESCRIPTION Slides are reviewed. GROSS DESCRIPTION A - Received in fixative is one container labeled with the patient's name and designated duodenum biopsy. The specimen consists of multiple irregular fragments of light sheehan soft tissue that in aggregate measure 0.5 x 0.3 x 0.1 cm. The specimen is totally submitted in one cassette. B - Received in fixative is one container labeled with the patient's name and designated antrum biopsy. The specimen consists of one irregular fragment of light sheehan soft tissue that measures 0.3 x 0.3 x 0.1 cm. The specimen is totally submitted in one cassette. C - Received in fixative is one container labeled with the patient's name and designated distal esophagus biopsy. The specimen consists of multiple irregular fragments of light sheehan soft tissue that in aggregate measure 0.6 x 0.3 x 0.1 cm. The specimen is totally submitted in one cassette. D - Received in fixative is one container labeled with the patient's name and designated mid esophagus biopsy. The specimen consists of one irregular fragment of light sheehan soft tissue that measures 0.3 x 0.3 x 0.1 cm. The specimen is totally submitted in one cassette. E - Received in fixative is one container labeled with the patient's name and designated random colonic biopsy. The specimen consists of multiple irregular fragments of light sheehan soft tissue that in aggregate measure 2 x 0.4 x 0.1 cm. The specimen is totally submitted in one cassette. / SJ:rg 04/08/20 TC:2 CPT: 67123 x5, 59496
--- NOTE | 2020-04-08 07:30 | IMM_PTH ---
PATIENT: JENNIFER WELLS LOC: EN U#:[id number] AGE/SX: 74/F ROOM: RE04/08/[address]: Dr. Jake oM MD : 1945 BED: DIS: 04/08/2020 SPEC #: [id number] RECD: 04/08/20 13:24 STATUS: CEDRIC REQ #: [id number] DREA: 04/08/20 07:[address]: Jake Mo DEPT: IMMUNOHISTOCHEMISTRY RECD BY: Leslye Dawn ENTERED: 04/08/20 13:24 SP TYPE: IMMUNO OTHR DR: Dr. Sung Finch MD Tissues: B - Stomach, NOS Procedures: H Pylori (initial) PHYSICIAN & INSTITUTION [place] [id number] SPECIMEN INFORMATION: Tissue Source: B - Antrum biopsy Clinical Info: Change in bowel habit, epigastric pain Specimen Number: [id number] CPT code: 48370 METHODOLOGY: Deparaffinized sections of prefer/formalin-fixed tissue or PAP/DQ stained slides are incubated with monoclonal/polyclonal antibodies/oligonucleotide probes. Localization is made via biotin free immunoperoxidase method. Appropriate controls are performed and reacted as expected. Results on target cell population are indicated in the following table: RESULTS: ANTIBODY / CLONE RESULT Block B H Pylori (polyclonal) negative These tests were developed and their performance characteristics determined by [facility]. They may not have been cleared or approved by the U.S. Food and Drug Administration. The FDA has determined that such clearance or approval is not necessary. INTERPRETATION: B. Antrum biopsy: Negative for Helicobacter pylori organisms. AM:jahaira 04/10/20
[2020-04-08 08:00] VITALS: BP 121/69; BP 189/97; PULSE 76; RESP 16; TEMP 36.7; O2SAT 98
--- NOTE | 2020-04-08 08:02 | OP.EGD_ITS ---
Patient Name: Katiana Urbina Procedure Date: 04/08/2020 7:22 AM Date of : 1945 Age: 74 Procedure: Upper GI endoscopy Indications: Epigastric abdominal pain Providers: Jake Mo MD Referring MD: Sung Finch Md Medicines: See the Anesthesia note for documentation of the administered medications Complications: No immediate complications. Procedure: Pre-Anesthesia Assessment: - Prior to the procedure, a History and Physical was performed, and patient medications and allergies were reviewed. The patient's tolerance of previous anesthesia was also reviewed. The risks and benefits of the procedure and the sedation options and risks were discussed with the patient. All questions were answered, and informed consent was obtained. Prior Anticoagulants: The patient has taken no previous anticoagulant or antiplatelet agents. ASA Grade Assessment: II - A patient with mild systemic disease. After reviewing the risks and benefits, the patient was deemed in satisfactory condition to undergo the procedure. After obtaining informed consent, the endoscope was passed under direct vision. Throughout the procedure, the patient's blood pressure, pulse, and oxygen saturations were monitored continuously. The gastroscope was introduced through the mouth, and advanced to the second part of duodenum. The upper GI endoscopy was accomplished without difficulty. The patient tolerated the procedure well. Scope In: 7:30:00 AM Scope Out: 7:36:48 AM Total Procedure Duration Time 0 hours 6 minutes 48 seconds Findings: LA Grade A (one or more mucosal breaks less than 5 mm, not extending between tops of 2 mucosal folds) esophagitis with no bleeding was found 35 cm from the incisors. Biopsies were taken with a cold forceps for histology. The mid esophagus was normal. Biopsies were taken with a cold forceps for histology. A medium-sized hiatal hernia was present. Diffuse mildly erythematous mucosa without bleeding was found in the gastric antrum. Biopsies were taken with a cold forceps for histology. The examined duodenum was normal. Biopsies were taken with a cold forceps for histology. Impression: - LA Grade A reflux esophagitis. Biopsied. - Normal mid esophagus. Biopsied. - Medium-sized hiatal hernia. - Erythematous mucosa in the antrum. Biopsied. - Normal examined duodenum. Biopsied. Recommendation: - Await pathology results. - Discharge patient to home. - Resume previous diet. - Continue present medications. - Use sucralfate tablets 1 gram PO QID. Procedure Code(s): --- Professional --- 67146, Esophagogastroduodenoscopy, flexible, transoral; with biopsy, single or multiple Diagnosis Code(s): --- Professional --- K21.0, Gastro-esophageal reflux disease with esophagitis K44.9, Diaphragmatic hernia without obstruction or gangrene K31.89, Other diseases of stomach and duodenum R10.13, Epigastric pain CPT copyright 2017 [employer]. All rights reserved. The codes documented in this report are preliminary and upon primary therapist review may be revised to meet current compliance requirements. Jake Mo MD 04/08/2020 8:01:49 AM This report has been signed electronically. Number of Addenda: 0 Note Initiated On: 04/08/2020 7:22 AM
--- NOTE | 2020-04-08 08:02 | OP.CCLET_ITS ---
04/08/2020 Sung Finch Md Re : Upper GI endoscopy procedure for Katiana Fayr Stef This procedure was performed on Wednesday, April 08, 2020. My impressions and recommendations are as follows: Impressions : - LA Grade A reflux esophagitis. Biopsied. - Normal mid esophagus. Biopsied. - Medium-sized hiatal hernia. - Erythematous mucosa in the antrum. Biopsied. - Normal examined duodenum. Biopsied. Recommendations : - Await pathology results. - Discharge patient to home. - Resume previous diet. - Continue present medications. - Use sucralfate tablets 1 gram PO QID. My findings are described in the full procedure note, which is enclosed. If I can be of further assistance, please feel free to contact me at Doctor phone number(s): Work: . Sincerely, Jake Mo MD 04/08/2020 8:01:49 AM This report has been signed electronically.
[2020-04-08 08:05] VITALS: BP 119/73; BP 189/97; PULSE 74; RESP 16; O2SAT 100
--- NOTE | 2020-04-08 08:08 | OP.COLON_ITS ---
Patient Name: Katiana Urbina Procedure Date: 04/08/2020 7:37 AM Date of : 1945 Age: 74 Procedure: Colonoscopy Indications: Screening for colorectal malignant neoplasm Providers: Jake Mo MD Referring MD: Sung Finch Md Medicines: See the Anesthesia note for documentation of the administered medications Patient Profile: Last Colonoscopy: 10 years ago. Complications: No immediate complications. Procedure: Pre-Anesthesia Assessment: - Prior to the procedure, a History and Physical was performed, and patient medications and allergies were reviewed. The patient's tolerance of previous anesthesia was also reviewed. The risks and benefits of the procedure and the sedation options and risks were discussed with the patient. All questions were answered, and informed consent was obtained. Prior Anticoagulants: The patient has taken no previous anticoagulant or antiplatelet agents. ASA Grade Assessment: II - A patient with mild systemic disease. After reviewing the risks and benefits, the patient was deemed in satisfactory condition to undergo the procedure. After I obtained informed consent, the scope was passed under direct vision. Throughout the procedure, the patient's blood pressure, pulse, and oxygen saturations were monitored continuously. The adult colonoscope was introduced through the anus and advanced to the cecum, identified by appendiceal orifice and ileocecal valve. The colonoscopy was performed without difficulty. The patient tolerated the procedure well. The quality of the bowel preparation was fair. The ileocecal valve and the appendiceal orifice were photographed. Scope In: 7:39:01 AM Scope Withdrawal Time 0 hours 10 minutes 8 seconds Scope Out: 7:55:32 AM Total Procedure Duration Time 0 hours 16 minutes 31 seconds Findings: The digital rectal exam findings include non-thrombosed external hemorrhoids, non-thrombosed internal hemorrhoids and internal hemorrhoids that prolapse with straining, but spontaneously regress to the resting position (Grade II). Pertinent negatives include normal sphincter tone. There was evidence of a prior end-to-end colo-colonic anastomosis in the distal sigmoid colon. This was patent and was characterized by healthy appearing mucosa. Multiple diverticula were found in the entire colon. Biopsies for histology were taken with a cold forceps from the entire colon for evaluation of microscopic colitis. Impression: - Preparation of the colon was fair. - Non-thrombosed external hemorrhoids, non-thrombosed internal hemorrhoids and internal hemorrhoids that prolapse with straining, but spontaneously regress to the resting position (Grade II) found on digital rectal exam. - Patent end-to-end colo-colonic anastomosis, characterized by healthy appearing mucosa. - Diverticulosis in the entire examined colon. - Biopsies were taken with a cold forceps from the entire colon for evaluation of microscopic colitis. Recommendation: - Discharge patient to home. - Resume previous diet. - Continue present medications. - Telephone my office for pathology results in 1 week. - Repeat colonoscopy in 10 years for screening purposes. Procedure Code(s): --- Professional --- 30287, Colonoscopy, flexible; with biopsy, single or multiple Diagnosis Code(s): --- Professional --- Z12.11, Encounter for screening for malignant neoplasm of colon K64.1, Second degree hemorrhoids K64.4, Residual hemorrhoidal skin tags Z98.0, Intestinal bypass and anastomosis status K57.30, Diverticulosis of large intestine without perforation or abscess without bleeding CPT copyright 2017 [employer]. All rights reserved. The codes documented in this report are preliminary and upon flatwork feeder review may be revised to meet current compliance requirements. Jake Mo MD 04/08/2020 8:08:33 AM This report has been signed electronically. Number of Addenda: 0 Note Initiated On: 04/08/2020 7:37 AM
--- NOTE | 2020-04-08 08:09 | OP.CCLET_ITS ---
04/08/2020 Sung Finch Md Re : Colonoscopy procedure for Katiana Fayr Stef This procedure was performed on Wednesday, April 08, 2020. My impressions and recommendations are as follows: Impressions : - Preparation of the colon was fair. - Non-thrombosed external hemorrhoids, non-thrombosed internal hemorrhoids and internal hemorrhoids that prolapse with straining, but spontaneously regress to the resting position (Grade II) found on digital rectal exam. - Patent end-to-end colo-colonic anastomosis, characterized by healthy appearing mucosa. - Diverticulosis in the entire examined colon. - Biopsies were taken with a cold forceps from the entire colon for evaluation of microscopic colitis. Recommendations : - Discharge patient to home. - Resume previous diet. - Continue present medications. - Telephone my office for pathology results in 1 week. - Repeat colonoscopy in 10 years for screening purposes. My findings are described in the full procedure note, which is enclosed. If I can be of further assistance, please feel free to contact me at Doctor phone number(s): Work: . Sincerely, Jake Mo MD 04/08/2020 8:08:33 AM This report has been signed electronically.
[2020-04-08 08:10] VITALS: BP 129/74; BP 189/97; PULSE 70; RESP 16; O2SAT 97
[2020-04-08 08:15] VITALS: BP 138/73; BP 189/97; PULSE 69; RESP 16; TEMP 36.5; O2SAT 97
[2020-04-08 08:29] VITALS: BP 189/97
== END 2020-04-08 08:40 | disposition home or self-care (01) ==
LOC: EN 06:28 → AC 06:28
PROVIDERS: PCP Family Medicine; Referring Provider Family Medicine; Visit Provider Surgery
PROC: 0DJD8ZZ Inspection of Lower Intestinal Tract, Via Natural or Artificial Opening Endoscopic (ICD-10-PCS; CPT 45378; principal; 2020-04-08 07:25)
DX: Z12.11 Encounter for screening for malignant neoplasm of colon (principal); K57.30 Diverticulosis of large intestine without perforation or abscess without bleeding; K29.50 Unspecified chronic gastritis without bleeding; K21.00 Gastro-esophageal reflux disease with esophagitis, without bleeding; K44.9 Diaphragmatic hernia without obstruction or gangrene; K31.89 Other diseases of stomach and duodenum; K64.1 Second degree hemorrhoids; K64.4 Residual hemorrhoidal skin tags; R19.4 Change in bowel habit; Z20.828 Contact with and (suspected) exposure to other viral communicable diseases; R10.9 Unspecified abdominal pain; I10 Essential (primary) hypertension; E66.9 Obesity, unspecified; Z98.0 Intestinal bypass and anastomosis status; Z79.82 Long term (current) use of aspirin; Z79.899 Other long term (current) drug therapy
CPT/HCPCS: 43239; 45380; 87426; 88305; 88342; C9803; J7120; J2405

== ENCOUNTER → 2020-06-10 10:17 | Outpatient (CLI) | payer MEDICARE, BC, SELFPAY ==
[2019-06-05 14:10] VITALS: BMI 36.1
[2020-02-21 11:09] VITALS: BMI 32.7
--- NOTE | 2020-06-10 10:19 | BI_ITS ---
MAMMOGRAPHY - BILATERAL SCREENING REASON FOR EXAM: Female, 74 years old. Routine annual screening examination. PERTINENT HISTORY: Non-contributory. TECHNIQUE: Digital bilateral breast nava (3D mammographic acquisition) in the CC and MLO projections. 2-D mediolateral oblique (MLO) and craniocaudad (CC) views of both breasts were obtained. CAD: Full Field Digital Mammography with Computer Added Detection was performed. COMPARISON: Comparison is made with prior examination dated 06/05/2019 and 04/28/2018. FINDINGS: Breast Composition: The breasts are heterogeneously dense, which may obscure small masses. There now is a 9.3 mm x 7.9 mm well-defined nodule in the central medial aspect of the left breast. Correlation with ultrasound is recommended. No other significant abnormalities are identified. BI/SCRN MAMM (CAD)W/NAVA BILAT IMPRESSION: 9.3 mm x 7.9 mm well-defined nodule in the central medial aspect of the left breast. Correlation with ultrasound is recommended. ASSESSMENT CATEGORY: BIRADS Category 0: Incomplete. Need additional imaging evaluation. A letter regarding these results will be sent to the patient by the facility within 30 days. Approximately 10% of breast cancers are not detected by mammography. A normal mammogram should not delay biopsy of a clinically suspicious abnormality. [id number] Electronically Signed: Angel James MD at 12:07 EST , Service support ,
== END ==
PROVIDERS: PCP Family Medicine; Referring Provider Nurse Practitioner Women's Health; Visit Provider Nurse Practitioner Women's Health
DX: Z12.31 Encounter for screening mammogram for malignant neoplasm of breast (principal)
CPT/HCPCS: 77063; 77067

== ENCOUNTER → 2020-06-19 10:35 | Outpatient (CLI) | payer MEDICARE, BC, SELFPAY ==
[2020-02-21 11:09] VITALS: BMI 32.7
[2020-06-10 11:04] VITALS: BMI 32.9
--- NOTE | 2020-06-19 10:55 | US_ITS ---
STUDY: ULTRASOUND BREAST - LEFT REASON FOR EXAM: Female, 74 years old. Abnormal screening mammogram. TECHNIQUE: Axial and longitudinal images of the LEFT breast were performed with a high resolution ultrasound transducer. # OF IMAGES: 17 COMPARISON: Comparison is made with prior mammogram dated 06/10/2020 and prior ultrasound of the left breast dated 04/29/2017. FINDINGS: LEFT Breast: There is a 7 mm x 8 mm x 6 mm cyst at the 10 o''clock position breast at 2 cm from the nipple. This corresponds to the mammographic findings. There has been essentially no change. US/Breast Limited Unilateral IMPRESSION: Stable 7 mm x 8 mm x 6 mm cyst at the 10 o''clock position of the breast at 3 cm from the nipple. ASSESSMENT CATEGORY: BIRADS Category 2: Benign. A letter regarding these results will be sent to the patient by the facility within 30 days. Electronically Signed: Angel James MD at 13:14 EST , Service support ,
== END ==
PROVIDERS: PCP Family Medicine; Visit Provider Nurse Practitioner Women's Health
DX: R92.8 Other abnormal and inconclusive findings on diagnostic imaging of breast (principal)
CPT/HCPCS: 76642

== ENCOUNTER → 2020-09-02 10:03 | Outpatient (CLI) | payer MEDICARE, BC, SELFPAY ==
[2020-02-21 11:09] VITALS: BMI 32.7
[2020-06-10 11:04] VITALS: BMI 32.9
[2020-09-02 12:24] LABS: Anion Gap 5 (5-15); BUN 20 mg/dL (7-18); BUN/Creat Ratio 16.5 RATIO (10-20); Calcium,Total 9.5 mg/dL (8.5-10.1); Chloride 97 mmol/L (98-107); Creatinine, Serum 1.21 mg/dL (0.55-1.02); EST Glomerular Filtration Rate 46 mL/min (>60); Est Glom Filt Rate - Afr Amer 56 mL/min (>60); Glucose 92 mg/dL (74-106); Potassium 3.8 mmol/L (3.5-5.1); Sodium Level 133 mmol/L (136-145)
== END ==
PROVIDERS: PCP Family Medicine; Referring Provider Family Medicine; Visit Provider Family Medicine
DX: I10 Essential (primary) hypertension (principal)
CPT/HCPCS: 36415; 80048

== ENCOUNTER 2021-07-08 13:55 | Outpatient (CLI) | payer MEDICARE, BC, SELFPAY ==
[2020-02-21 11:09] VITALS: BMI 32.7
--- NOTE | 2021-07-08 13:57 | BI_ITS ---
MAMMOGRAPHY - BILATERAL SCREENING REASON FOR EXAM: Female, 75 years old. Routine annual screening examination. PERTINENT HISTORY: Non-contributory. TECHNIQUE: Digital bilateral breast nava (3D mammographic acquisition) in the CC and MLO projections. 2-D mediolateral oblique (MLO) and craniocaudad (CC) views of both breasts were obtained. CAD: Full Field Digital Mammography with Computer Added Detection was performed. COMPARISON: Comparison is made with prior study dated 06/10/2020 and 12/04/2019 FINDINGS: Breast Composition: The breasts are heterogeneously dense, which may obscure small masses. There are no dominant masses or suspicious calcifications. The previously seen 9.3 mm x 7.9 mm well-defined nodule in the central medial aspect of the left breast seen at this time.. No other significant abnormalities are identified. There has been no significant change since the prior study. BI/SCRN MAMM (CAD)W/NAVA BILAT IMPRESSION: Stable bilateral screening mammogram. Yearly follow-up mammogram recommended. (A) ASSESSMENT CATEGORY: BIRADS Category 2: Benign. A letter regarding these results will be sent to the patient by the facility within 30 days. Approximately 10% of breast cancers are not detected by mammography. A normal mammogram should not delay biopsy of a clinically suspicious abnormality. [id number] Electronically Signed: Angel James MD at 14:50 EST ,
== END 2021-07-08 23:59 | disposition home or self-care (01) ==
LOC: OPBI 13:56
PROVIDERS: Referring Provider Nurse Practitioner Women's Health; Visit Provider Nurse Practitioner Women's Health
DX: Z12.31 Encounter for screening mammogram for malignant neoplasm of breast (principal)
CPT/HCPCS: 77063; 77067

== ENCOUNTER → 2022-07-02 | Outpatient (CLI) | payer MEDICARE, BC, SELFPAY ==
[2022-07-01 10:28] VITALS: BMI 32.7
== END | disposition home or self-care (01) ==
LOC: LABSPEC 12:15
PROVIDERS: Referring Provider Registered Nurse; Visit Provider Registered Nurse
DX: N39.0 Urinary tract infection, site not specified (principal)
CPT/HCPCS: 87077; 87086; 87088; 87186

== ENCOUNTER → 2022-07-06 | Outpatient (CLI) | payer MEDICARE, BC, SELFPAY ==
[2022-07-01 10:28] VITALS: BMI 32.7
[2022-07-06 14:07] LABS: Hemoglobin A1c 5.6 % (3.8-5.6)
== END | disposition home or self-care (01) ==
LOC: PAVLAB 13:28
PROVIDERS: Referring Provider Nurse Practitioner Women's Health; Visit Provider Nurse Practitioner Women's Health
DX: R73.01 Impaired fasting glucose (principal)
CPT/HCPCS: 36415; 83036

== ENCOUNTER → 2022-07-13 | Outpatient (CLI) | payer MEDICARE, BC, SELFPAY ==
[2020-02-21 11:09] VITALS: BMI 32.7
[2022-07-01 10:28] VITALS: BMI 32.7
--- NOTE | 2022-07-13 10:16 | BI_ITS ---
MAMMOGRAPHY - BILATERAL SCREENING REASON FOR EXAM: Female, 76 years old. Routine annual screening examination. PERTINENT HISTORY: Non-contributory. TECHNIQUE: Digital bilateral breast nava (3D mammographic acquisition) in the CC and MLO projections. 2-D mediolateral oblique (MLO) and craniocaudad (CC) views of both breasts were obtained. CAD: Full Field Digital Mammography with Computer Added Detection was performed. COMPARISON: Comparison is made with prior study dated 07/08/2021 and 06/10/2020. FINDINGS: Breast Composition: The breasts are heterogeneously dense, which may obscure small masses. There are no dominant masses or suspicious calcifications. No other significant abnormalities are identified. There has been no significant change since the prior study. BI/SCRN MAMM (CAD)W/NAVA BILAT IMPRESSION: Stable bilateral screening mammogram. Yearly follow-up mammogram recommended. (A) ASSESSMENT CATEGORY: BIRADS Category 1: Negative. A letter regarding these results will be sent to the patient by the facility within 30 days. Approximately 10% of breast cancers are not detected by mammography. A normal mammogram should not delay biopsy of a clinically suspicious abnormality. [id number] Electronically Signed: Angel James MD at 12:33 EST ,
== END | disposition home or self-care (01) ==
LOC: OPBI 10:14
PROVIDERS: Visit Provider Nurse Practitioner Women's Health
DX: Z12.31 Encounter for screening mammogram for malignant neoplasm of breast (principal)
CPT/HCPCS: 77063; 77067

== ENCOUNTER → 2022-09-28 | Outpatient (CLI) | payer MEDICARE, OTHER, SELFPAY ==
[2022-07-01 10:28] VITALS: BMI 32.7
[2022-09-28 10:51] LABS: Microalbumin,Random Urine 44.7 mg/L (NO RANGE EST.)
[2022-09-28 10:59] LABS: Vitamin D,25 Hydroxy 50.6 ng/mL
[2022-09-28 11:00] LABS: ALB/GLOB Ratio 1.2 RATIO (0.9-2.4); AST(SGOT) 24 U/L (15-37); Alanine Aminotransfer ALT/SGPT 25 U/L (13-56); Albumin, Serum 3.8 g/dL (3.2-5.0); Alkaline Phosphatase 64 U/L (45-117); Anion Gap 6 (5-15); BUN 22 mg/dL (7-18); BUN/Creat Ratio 19.5 RATIO (10-20); Calcium,Total 9.4 mg/dL (8.5-10.1); Chloride 101 mmol/L (98-107); Cholesterol 203 mg/dL (200); Creatinine, Serum 1.13 mg/dL (0.55-1.02); EST Glomerular Filtration Rate 50 mL/min (>60); Est Glom Filt Rate - Afr Amer 60 mL/min (>60); Globulin 3.3 g/dL (2.2-4.2); Glucose 110 mg/dL (74-106); High Density Lipoprotein 58 mg/dL; Protein, Total 7.1 g/dL (6.4-8.2); Sodium Level 135 mmol/L (136-145); Triglycerides 168 mg/dL; Very Low Density Lipoprotein 34 mg/dL (5-40)
== END | disposition home or self-care (01) ==
LOC: LAB 09:54
PROVIDERS: PCP Family Medicine; Referring Provider Family Medicine; Visit Provider Family Medicine
DX: N18.30 Chronic kidney disease, stage 3 unspecified (principal); E78.00 Pure hypercholesterolemia, unspecified; E55.9 Vitamin D deficiency, unspecified
CPT/HCPCS: 36415; 80053; 80061; 82043; 82306

== ENCOUNTER → 2023-07-14 | Outpatient (CLI) | payer MEDICARE, OTHER, SELFPAY ==
[2022-07-01 10:28] VITALS: BMI 32.7
--- NOTE | 2023-07-14 10:22 | BI_ITS ---
MAMMOGRAPHY - BILATERAL SCREENING REASON FOR EXAM: Female, 77 years old. Routine annual screening examination. PERTINENT HISTORY: Non-contributory. Remote right breast aspiration. TECHNIQUE: Digital bilateral breast nava (3D mammographic acquisition) in the CC and MLO projections. 2-D mediolateral oblique (MLO) and craniocaudad (CC) views of both breasts were obtained. CAD: Full Field Digital Mammography with Computer Added Detection was performed. COMPARISON: Comparison is made with prior examination of July 13, 2022 and February 05, 2022. FINDINGS: Breast Composition: The breasts are heterogeneously dense, which may obscure small masses. There are no dominant masses or suspicious calcifications. No other significant abnormalities are identified. There has been no significant change since the prior study. BI/SCRN MAMM (CAD)W/NAVA BILAT IMPRESSION: Stable bilateral screening mammogram. Yearly follow-up mammogram recommended. (A) ASSESSMENT CATEGORY: BIRADS Category 1: Negative. A letter regarding these results will be sent to the patient by the facility within 30 days. Approximately 10% of breast cancers are not detected by mammography. A normal mammogram should not delay biopsy of a clinically suspicious abnormality. [id number] Electronically Signed: Angel James MD at 13:19 EST ,
--- OUTSIDE RECORDS SUMMARY | 2023-07-14 11:15 | XMS RPT_ITS | CCD ---
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 Medications Current Medications Medication Drug Class(es) Dates Sig (Normalized) Sig (Original) amoxicillin 500 mg oral capsule (2 sources) Penicillin-class Antibacterial Start: 07-13-2019 24100 Medication amoxicillin amoxicillin 500 mg 07/13/2019 Active (Outside) esomeprazole 40 mg delayed release oral capsule (2 sources) Proton Pump Inhibitor Start: 09-12-2014 258654 Medication esomeprazole magnesium 40 mg capsule,delayed release Nexium 40 mg 09/12/2014 Active (Outside) naproxen 375 mg oral tablet (5 sources) Nonsteroidal Anti-inflammatory Drug Start: 07-13-2019 014954 Medication naproxen naproxen 375 mg 07/13/2019 Active (Outside) Completed/Discontinued Medications Medication Drug Class(es) Dates Sig (Normalized) Sig (Original) aspirin 81 mg oral tablet (5 sources) Nonsteroidal Anti-inflammatory Drug Start: 01-21-2017 take 1 tablet by mouth once daily ADULT ASPIRIN EC LOW STRENGTH 81 MG TBEC One tablet by mouth daily ASPIRIN [id number] Gurmeet Hammond Problems Active Problems Problem Classification Problem Date Documented Date Episodic/Chronic Neoplasms of unspecified nature or uncertain behavior (8 sources) Neoplasm of uncertain behavior of skin; Translations: [Neoplasm of unspecified behavior of bone, soft tissue, and skin] Onset: 09-22-2016 Episodic Other aftercare (5 sources) Encounter for follow-up examination after completed treatment for conditions other than malignant neoplasm Onset: 05-12-2020 Episodic Other and unspecified benign neoplasm (2 sources) Hemangioma of skin and subcutaneous tissue Onset: 07-22-2020 Episodic Other congenital anomalies (2 sources) 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 Other inflammatory condition of skin (4 sources) Other seborrheic dermatitis Onset: 09-17-2015 Episodic Other non-epithelial cancer of skin (20 sources) Personal history of other malignant neoplasm of skin; 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] Onset: 04-08-2015 Episodic Other skin disorders (6 sources) Other melanin hyperpigmentation; Translations: [Other melanin hyperpigmentation] Onset: 09-22-2016 Episodic Other skin disorders (2 sources) Sebaceous cyst Onset: 07-22-2020 Episodic Other skin disorders (8 sources) Other seborrheic keratosis; Translations: [Other seborrheic keratosis] Onset: 09-17-2015 Episodic Other skin disorders (4 sources) Scar conditions and fibrosis of skin; Translations: [Scar condition and fibrosis of skin] Onset: 07-21-2020 Episodic Other skin disorders (6 sources) Actinic keratosis; Translations: [Actinic Keratosis] Onset: 04-08-2015 Episodic Unclassified (1 source) No current problems or disability 01-21-2017 Unclassified (2 sources) Hormone replacement therapy ; Translations: [Hormone replacement therapy] Onset: 03-22-2017 03-22-2017 Unclassified (2 sources) Screening mammography ; Translations: [Encounter for screening mammogram for malignant neoplasm of breast] Onset: 03-22-2017 03-22-2017 Unclassified (2 sources) Gynecologic examination ; Translations: [Encounter for gynecological examination (general) (routine) without abnormal findings] Onset: 03-22-2017 03-22-2017 Past or Other Problems Problem Classification Problem Date Documented Da te Episodic/Chronic Unclassified (2 sources) SCC in situ Face Onset: 07-22-2020 Unclassified (2 sources) Onset: 02-14-2014 Unclassified (4 sources) Onset: 02-14-2014 Unclassified (2 sources) Onset: 02-21-2014 Unclassified (2 sources) Onset: 09-12-2014 Results Test Name Value Interpretation Reference Range Facil ity Vital Signs Date Time Vital Sign Value Performing Clinician Facility 04-24-2020 10:14-0500 BP Diastolic 83 mm[Hg] [facility] 04-24-2020 10:14-0500 BP Systolic 168 mm[Hg] [facility] 04-24-2020 09:14-0500 Diastolic blood pressure 83 mm[Hg] [facility] 04-24-2020 09:14-0500 Systolic blood pressure 168 mm[Hg] [facility] 03-18-2020 10:48-0400 BP Diastolic 94 mm[Hg] [facility] 03-18-2020 10:48-0400 BP Systolic 173 mm[Hg] [facility] 03-18-2020 09:48-0400 Diastolic blood pressure 94 mm[Hg] [facility] 03-18-2020 09:48-0400 Systolic blood pressure 173 mm[Hg] [facility] 07-13-2019 09:32-0500 BP Diastolic 85 mm[Hg] [facility] 07-13-2019 09:32-0500 BP Systolic 153 mm[Hg] [facility] 07-13-2019 08:32-0500 Diastolic blood pressure 85 mm[Hg] [facility] 07-13-2019 08:32-0500 Systolic blood pressure 153 mm[Hg] [facility] 11-17-2018 11:08-0400 BP Diastolic 87 mm[Hg] [facility] 11-17-2018 11:08-0400 BP Systolic 183 mm[Hg] [facility] 11-17-2018 10:08-0400 Diastolic blood pressure 87 mm[Hg] [facility] 11-17-2018 10:08-0400 Systolic blood pressure 183 mm[Hg] [facility] 03-22-2017 10:27-0400 BMI (Body Mass Index) 33.52 kg/m2 Tania Lombardi NP [facility] 03-22-2017 10:27-0400 Body Temperature 97.4 [degF] Tania Lombardi NP [facility] 03-22-2017 10:27-0400 Body Temperature 97.39 [degF] Tania Lombardi NP [facility] 03-22-2017 10:27-0400 BP Diastolic 74 mm[Hg] Tania Lombardi NP [facility] 03-22-2017 10:27-0400 BP Systolic 146 mm[Hg] Tania Lombardi NP [facility] 03-22-2017 10:27-0400 Height 165.74 cm Tania Lombardi NP [facility] 03-22-2017 10:27-0400 Pulse (Heart Rate) 65 /min Tania Lombardi NP [facility] 03-22-2017 10:27-0400 Respiratory Rate 16 /min Tania Lombardi NP [facility] 03-22-2017 10:27-0400 Weight 92.08 kg Tania Lombardi NP [facility] Encounters Encounter Date Encounter Type Care Provider Facility Start: 01-28-2021 Office outpatient vi sit 15 minutes [facility] Start: 07-21-2020 End: 07-22-2020 Office outpatient visit 15 minutes [facility] Start: 05-12-2020 End: 05-13-2020 Office outpatient visit 15 minutes [facility] Start: 05-12-2020 End: 05-13-2020 Postop follow up visit related to original px [facility] Start: 04-27-2020 End: 04-28-2020 Postop follow up visit related to original px [facility] Start: 12-15-2018 End: 12-15-2018 Office outpatient visit 15 minutes [facility] Start: 12-15-2018 End: 12-15-2018 Postop follow up visit related to original px [facility] Start: 06-29-2017 End: 06-30-2017 Office outpatient visit 10 minutes [facility] Start: 06-29-2017 End: 06-30-2017 Office outpatient visit 15 minutes [facility] Start: 05-23-2017 End: 05-24-2017 Office outpatient visit 15 minutes [facility] Start: 09-22-2016 End: 09-22-2016 Office outpatient visit 15 minutes [facility] Start: 03-17-2016 End: 03-17-2016 Office outpatient visit 15 minutes [facility] Start: 09-17-2015 End: 09-17-2015 Office outpatient visit 15 minutes [facility] Start: 04-08-2015 End: 04-09-2015 Office outpatient visit 15 minutes Bryan [facility] Start: 09-12-2014 End: 09-12-2014 Office outpatient visit 15 minutes Bryan [facility] Start: 09-12-2014 End: 09-12-2014 Office outpatient visit 25 minutes Bryan [facility] Start: 06-10-2014 End: 06-11-2014 Office outpatient visit 15 minutes Bryan [facility] Start: 02-21-2014 End: 02-21-2014 Office outpatient visit 15 minutes Bryan [facility] Start: 02-14-2014 End: 02-14-2014 Office outpatient visit 15 minutes Bryan [facility] Procedures Date Procedure Procedure Detail Performing Clinician Start: 04-23-2020 End: 04-24-2020 Mohs micrographic h/n/h/f/g 1st stage 5 blocks Bryan [facility] Start: 04-23-2020 End: 04-24-2020 Mohs micrographic h/n/h/f/g each addl stage Bryan [facility] Start: 04-23-2020 End: 04-24-2020 Mohs micrographic technique each additional stage, after the first stage up to five blocks Mohs micrographic technique head, neck, hands, feet, genitalia, or any location with surgery directly involving muscle, cartilage, bone, tend Bryan [facility] Start: 04-23-2020 End: 04-24-2020 Tangential biopsy skin single lesion Bryan [facility] Start: 03-18-2020 End: 03-18-2020 Mohs micrographic h/n/h/f/g 1st stage 5 blocks Bryan [facility] Start: 03-12-2020 End: 03-12-2020 Established Office Visit Level 2 Luis Daniel Hendricks Start: 07-12-2019 End: 07-13-2019 Established Office Visit Level 3 Bryan [facility] Start: 07-12-2019 End: 07-13-2019 Incision & drainage abscess simple/single Dl Start: 07-12-2019 End: 07-13-2019 Mohs micrographic h/n/h/f/g 1st stage 5 blocks D[facility] Start: 11-17-2018 End: 11-17-2018 Established Office Visit Level 2 [facility] Start: 11-17-2018 End: 11-17-2018 Mohs micrographic h/n/h/f/g 1st stage 5 blocks Bryan [facility] Start: 03-22-2017 End: 03-22-2017 Pelvic & Breast Exam (Medicare) Tania Lombardi NP Work Phone: Start: 04-08-2015 End: 04-09-2015 Destruction premalignant lesion 1st Dl Start: 04-08-2015 End: 04-09-2015 Established Office Visit Level 4 Bryan [facility] Plan of Treatment Date Care Activity Detail Author Start: 03-22-2017 End: 03-22-2017 Mammogram, screening Mammogram, Screening, both breasts [facility] Start: 03-22-2017 End: 03-22-2017 [facility] Work Phone: Immunizations Immunization Date Immunization Notes Care Provider Fa layne 1945 pneumococcal conjuga te vaccine, 7 valent [facility] Social History Date Type Detail Facility Start: 07-23-2020 Sex [facility] Start: 1945 Sex Assigned At Female [facility] Goals Date Patient Goal Desired Activity /State Evaluation note Note Date & Type Note Facility Evaluation note N/A [facility] Reason for referral (narrative) Note Date & Type Note Facility [facility] Summary Purpose Family History No Family History Records FoundNo Family History Records FoundNo Family History Records Found Advance Directives No Advanced Directives Records FoundNo Advanced Directives Records FoundNo Advanced Directives Records Found Assessments N/A Reason for Referral Name Reason for referral NA NA Additional Source Comments INFORMATION SOURCE (unrecogn ized section and content) DATE CREATED AUTHOR AUTHOR'S ORGANIZ ATION 07/11/2019 [facility] DATE CREATED AUTHOR AUTHOR'S ORGANFAVIAN ATION 01/29/2021 [facility] FOR RECORDS PERTAINING TO PATIENTS WHO ARE OR HAVE BEEN ENROLLED IN A CHEMICAL DEPENDENCY/SUBSTANCEABUSE PROGRAM, SOME INFORMATION MAY BE OMITTED. This clinical summary was aggregated from multiple sources. Caution should be exercised in using it in the provision of clinical care. This summary normalizes information from multiple sources, and as a consequence, information in this document may materially change the coding, format and clinical context of patient data. In addition, data may be omitted in some cases. CLINICAL DECISIONS SHOULD BE BASED ON THE PRIMARY CLINICAL RECORDS. [employer] provides no warranty or guarantee of the accuracy or completeness of information in this document.
== END | disposition home or self-care (01) ==
LOC: OPBI 10:22
PROVIDERS: PCP Family Medicine; Referring Provider Nurse Practitioner Women's Health; Visit Provider Nurse Practitioner Women's Health
DX: Z12.31 Encounter for screening mammogram for malignant neoplasm of breast (principal)
CPT/HCPCS: 77063; 77067

== ENCOUNTER → 2023-09-10 | Outpatient (CLI) | payer MEDICARE, OTHER, SELFPAY ==
[2022-07-01 10:28] VITALS: BMI 32.7
[2023-09-10 09:43] LABS: Hemoglobin A1c 5.3 % (3.8-5.6)
[2023-09-10 09:49] LABS: ALB/GLOB Ratio 1.2 RATIO (0.9-2.4); AST(SGOT) 15 U/L (15-37); Alanine Aminotransfer ALT/SGPT 18 U/L (13-56); Albumin, Serum 3.7 g/dL (3.2-5.0); Alkaline Phosphatase 69 U/L (45-117); Anion Gap 5 (5-15); BUN 22 mg/dL (7-18); BUN/Creat Ratio 18.3 RATIO (10-20); Calcium,Total 9.1 mg/dL (8.5-10.1); Chloride 102 mmol/L (98-107); Cholesterol 194 mg/dL (200); EST Glomerular Filtration Rate 46 mL/min (>60); Est Glom Filt Rate - Afr Amer 56 mL/min (>60); Globulin 3.1 g/dL (2.2-4.2); Glucose 115 mg/dL (74-106); High Density Lipoprotein 56 mg/dL; Protein, Total 6.8 g/dL (6.4-8.2); Sodium Level 137 mmol/L (136-145); Triglycerides 112 mg/dL; Very Low Density Lipoprotein 22 mg/dL (5-40)
[2023-09-10 10:06] LABS: Microalbumin,Random Urine 44.1 mg/L (NO RANGE EST.); Microalbumin:Creatinine Ratio 67.1 mg/g CRE (<30 mg/g CRE)
[2023-09-12 08:13] LABS: Vitamin D,25 Hydroxy 41.1 ng/mL
== END | disposition home or self-care (01) ==
LOC: LAB 08:39
PROVIDERS: PCP Family Medicine; Referring Provider Family Medicine; Visit Provider Family Medicine
DX: E78.00 Pure hypercholesterolemia, unspecified (principal); I10 Essential (primary) hypertension; E55.9 Vitamin D deficiency, unspecified; R73.09 Other abnormal glucose
CPT/HCPCS: 36415; 80053; 80061; 82043; 82306; 82570; 83036

== ENCOUNTER → 2024-07-17 | Outpatient (CLI) | payer MEDICARE, OTHER, SELFPAY ==
[2022-07-01 10:28] VITALS: BMI 32.7
--- NOTE | 2024-07-17 14:33 | BI_ITS ---
PROCEDURE: SCRN MAMM (CAD)W/NAVA BILAT REASON FOR EXAM: F, Age 79 y/o, no family history. Prior right breast aspiration. TECHNIQUE: Bilateral screening digital breast tomosynthesis with 2D and 3D images. Computer aided detection. COMPARISON: Prior exam(s) dating back to July 14, 2023.. FINDINGS: The breasts are heterogeneously dense which may obscure small masses. Stable examination. No suspicious masses, areas of developing architectural distortion, or suspicious calcifications. BI/SCRN MAMM (CAD)W/NAVA BILAT IMPRESSION: BI-RADS 1: NEGATIVE. RECOMMEND ANNUAL MAMMOGRAPHIC SCREENING. Follow-up code: Routine Follow-up The patient will be notified of the results by letter. Reading Location: [id number]
== END | disposition home or self-care (01) ==
PROVIDERS: PCP Family Medicine; Referring Provider Nurse Practitioner Women's Health; Visit Provider Nurse Practitioner Women's Health
DX: Z12.31 Encounter for screening mammogram for malignant neoplasm of breast (principal)
CPT/HCPCS: 77063; 77067